=== PATIENT | male | born 1965 | race Caucasian/White ===

== ENCOUNTER 2023-11-08 15:33 | Observation (INO) ==
[2023-11-08 16:19] LABS: Hematocrit (blood only) 50.6 % (42.0-52.0); Hemoglobin 17.3 g/dl (14.0-18.0); Mean Corpuscular Hgb Conc 34.2 g/dL (32.0-36.0); Mean Corpuscular Volume 84.8 fL (80.0-100.0); Mean Platelet Volume 9.8 fL (9.4-12.4); Platelet Count 213 K/uL (130-400); RDW Coefficient of Variation 12.6 % (11.5-14.5); RDW Standard Deviation 38.4 fL (36.4-46.3); Red Blood Count 5.97 M/uL (4.70-6.10); White Blood Count 6.63 K/ul (4.8-10.8)
[2023-11-08 16:35] LABS: Albumin Globulin Ratio 1.6 (0.9-2); Albumin Level 4.5 gm/dl (3.4-5.0); BUN Creatinine Ratio 16.7 (10-20); Bilirubin,Total 0.7 mg/dl (0.2-1.0); Creatinine Clr Calc Pharmacy 89.9 ml/min; Est GFR (African American) 109.5 ml/min; Est GFR (Non-African American) 94.5 ml/min; Globulin 2.9 gm/dl (2.5-4.0); Total Protein 7.4 gm/dl (6.0-8.3)
[2023-11-08 16:41] LABS: Troponin I High Sensitivity 3.9 pg/ml (0-20)
[2023-11-08 16:45] LABS: Partial Thromboplastin Time 28 Seconds (21-31); Prothrombin Time 10.7 Seconds (9.0-12.0)
--- NOTE | 2023-11-08 19:31 | Emergency Department Note ---
Impression & Plan Lower gastrointestinal hemorrhage, BRBPR (bright red blood per rectum), Diverticulosis ED Provider Note NAME: YRN CORONA AGE: 58 SEX: M : 1965 ARRIVES VIA: Walk-In INFORMANT: Patient ED PROVIDER(S): Umesh Ghosh DO CHIEF COMPLAINT: Bright red blood per rectum HPI: Patient is a 58-year-old male who presents to the ER for blood per rectum which started earlier today. He has had about 6 episodes of this today. He has left lower quadrant pain. Associate with nausea. Denies any dysuria urgency or frequency. No headache or change in vision. No chest pain or shortness of breath. No other exacerbating or remitting factors. ADDITIONAL HISTORY OBTAINED: Per HPI Chronic Medical/Social Conditions Affecting Care: Per HPI PAST MEDICAL HISTORY:See Below PAST SURGICAL HISTORY:See Below FAMILY HISTORY:See Below SOCIAL HISTORY:See Below HOME MEDICATIONS:See Below ALLERGIES:See Below VITALS:See Below PHYSICAL EXAMINATION: GENERAL: Sitting up in bed, alert, well appearing, well nourished, no distress, non-toxic EYE EXAM: normal conjunctiva. OROPHARYNX: no exudate, no erythema, lips, buccal mucosa, and tongue normal and mucous membranes are moist NECK: supple, no nuchal rigidity, no adenopathy, non-tender LUNGS: Clear to auscultation. Normal chest wall mechanics HEART: no murmurs, S1 normal and S2 normal ABDOMEN: abdomen soft, non-tender, normo-active bowel sounds, no masses, no rebound or guarding. BACK: Back is symmetrical on inspection and there is no deformity, no midline tenderness, no CVA tenderness. SKIN: no rashes and no bruising UPPER EXTREMITIES: upper extremities are grossly normal. LOWER EXTREMITIES: No pitting edema. NEURO EXAM: Normal sensorium, cranial nerves II-XII grossly intact, normal speech, no gross weakness of arms, no gross weakness of legs. MEDICAL DECISION MAKING: Patient is a 58-year-old male who presents ER for above-stated complaint. IV was established blood work was obtained. Labs show no significant leukocytosis or anemia. INR unremarkable. BMP along with LFTs bilirubin and troponin was negative. Patient was typed and screened. Patient denies any blood thinners. CT abdomen pelvis showed no acute pathology with exception of diverticulosis. Hemoglobin went from 17 down to 14 while here. With this drop I did think it was prudent to watch him overnight. He was given IV fluids while here. Discussed case with the hospitalist Dr. Boyle for further evaluation management and treatment. Not consistent with an upper GI bleed with a normal BUN and no dark stools. Consults/Care Managements Discussions: Per MDM Triage Nursing notes reviewed. Limited review of prior medical records performed Vital Signs: reviewed and remarkable for HTN Differential diagnosis: Diverticulosis, AVM, coagulopathy, colitis, inflammatory bowel disease, malignancy, Doris-Canchola tear, esophagitis, peptic ulcer disease, variceal bleed, gastritis, epistaxis, fissure, hemorrhoids, as well as other pathologies. ER treatment provided: See below Diagnostics interpreted by me include EKG and cardiac monitoring as listed below: -Cardiac Monitoring: An order was placed for continuous cardiac monitoring. The monitor shows a rate of 70 with sinus rhythm. -ECG: none -Laboratory studies:Interpreted by me as stated above in MDM and shown below. Imaging studies: Xrays: As interpreted by me:none CTs show: CT abdomen pelvis per my preliminary interpretation showed no obvious bowel obstruction CT abdomen pelvis per radiologist scribed above Procedures:none Critical Care: None Past Med/Surg History Problem List (Updated 11/08/23 @ 21:24 by Umesh Ghosh DO) Diverticulosis (Acute) BRBPR (bright red blood per rectum) (Acute) Lower gastrointestinal hemorrhage (Acute) Social History Smoking Status: Never smoker Preferred Language: Thai Feels Safe at Home: Yes Allergies Allergies Allergy/AdvReac Type Severity Reaction Status Date / Time No Known Allergies Allergy Unverified 11/08/23 20:34 Home Meds Home Medications Medication Instructions Recorded Confirmed Fish Oil 2 cap PO QAM 11/08/23 11/08/23 Nexium 1 cap PO QAM 11/08/23 11/08/23 lisinopril 10 mg tablet 10 mg PO QAM 11/08/23 11/08/23 multivitamin 1 tab PO QAM 11/08/23 11/08/23 Results & Data (ED) Vital Signs Vital Signs - 24 hr 11/08/23 15:41 11/08/23 19:20 11/08/23 19:20 Temperature 36.7 C Temperature Source Temporal Artery Scan Pulse Rate - Lying Pulse Rate - Sitting Pulse Rate - Standing Pulse Rate 69 73 74 Respiratory Rate 18 24 Respiratory Effort / Characteristics Non-Labored Spontaneous Respiratory Depth Normal Blood Pressure - Lying Blood Pressure - Sitting Blood Pressure- Standing Blood Pressure 149/104 H Blood Pressure Mean 119 Blood Pressure Position Sitting Pulse Oximetry 98 Oxygen Delivery Method Room Air Sepsis Recent Fever Within 48 Hours No Sepsis New/Unexplained Change in Mental Status No Sepsis Action Taken by Nursing No Action Required 11/08/23 19:21 11/08/23 19:21 11/08/23 19:21 Temperature Temperature Source Pulse Rate - Lying 67 Pulse Rate - Sitting 66 Pulse Rate - Standing 68 Pulse Rate 79 Respiratory Rate 19 Respiratory Effort / Characteristics Respiratory Depth Blood Pressure - Lying 159/110 H Blood Pressure - Sitting 161/98 H Blood Pressure- Standing 158/110 H Blood Pressure 158/110 H Blood Pressure Mean 142 Blood Pressure Position Pulse Oximetry Oxygen Delivery Method Sepsis Recent Fever Within 48 Hours Sepsis New/Unexplained Change in Mental Status Sepsis Action Taken by Nursing 11/08/23 19:22 11/08/23 19:30 11/08/23 19:46 Temperature Temperature Source Pulse Rate - Lying Pulse Rate - Sitting Pulse Rate - Standing Pulse Rate 61 66 Respiratory Rate 18 11 L Respiratory Effort / Characteristics Respiratory Depth Blood Pressure - Lying Blood Pressure - Sitting Blood Pressure- Standing Blood Pressure Blood Pressure Mean Blood Pressure Position Pulse Oximetry Oxygen Delivery Method Room Air Sepsis Recent Fever Within 48 Hours Sepsis New/Unexplained Change in Mental Status Sepsis Action Taken by Nursing 11/08/23 19:47 11/08/23 19:47 11/08/23 19:48 Temperature Temperature Source Pulse Rate - Lying Pulse Rate - Sitting Pulse Rate - Standing Pulse Rate 62 Respiratory Rate 11 L Respiratory Effort / Characteristics Respiratory Depth Blood Pressure - Lying Blood Pressure - Sitting Blood Pressure- Standing Blood Pressure 159/106 H 148/112 H Blood Pressure Mean 121 123 Blood Pressure Position Pulse Oximetry Oxygen Delivery Method Sepsis Recent Fever Within 48 Hours Sepsis New/Unexplained Change in Mental Status Sepsis Action Taken by Nursing 11/08/23 19:48 11/08/23 19:50 11/08/23 20:00 Temperature Temperature Source Pulse Rate - Lying Pulse Rate - Sitting Pulse Rate - Standing Pulse Rate 64 60 57 L Respiratory Rate 19 20 Respiratory Effort / Characteristics Respiratory Depth Blood Pressure - Lying Blood Pressure - Sitting Blood Pressure- Standing Blood Pressure Blood Pressure Mean Blood Pressure Position Pulse Oximetry Oxygen Delivery Method Sepsis Recent Fever Within 48 Hours Sepsis New/Unexplained Change in Mental Status Sepsis Action Taken by Nursing 11/08/23 20:10 11/08/23 20:20 11/08/23 20:30 Temperature Temperature Source Pulse Rate - Lying Pulse Rate - Sitting Pulse Rate - Standing Pulse Rate 60 61 61 Respiratory Rate 17 15 22 Respiratory Effort / Characteristics Respiratory Depth Blood Pressure - Lying Blood Pressure - Sitting Blood Pressure- Standing Blood Pressure Blood Pressure Mean Blood Pressure Position Pulse Oximetry Oxygen Delivery Method Sepsis Recent Fever Within 48 Hours Sepsis New/Unexplained Change in Mental Status Sepsis Action Taken by Nursing 11/08/23 20:40 11/08/23 20:50 11/08/23 21:00 Temperature Temperature Source Pulse Rate - Lying Pulse Rate - Sitting Pulse Rate - Standing Pulse Rate 62 67 63 Respiratory Rate 17 17 Respiratory Effort / Characteristics Respiratory Depth Blood Pressure - Lying Blood Pressure - Sitting Blood Pressure- Standing Blood Pressure Blood Pressure Mean Blood Pressure Position Pulse Oximetry Oxygen Delivery Method Sepsis Recent Fever Within 48 Hours Sepsis New/Unexplained Change in Mental Status Sepsis Action Taken by Nursing 11/08/23 21:10 Temperature Temperature Source Pulse Rate - Lying Pulse Rate - Sitting Pulse Rate - Standing Pulse Rate 68 Respiratory Rate 16 Respiratory Effort / Characteristics Respiratory Depth Blood Pressure - Lying Blood Pressure - Sitting Blood Pressure- Standing Blood Pressure Blood Pressure Mean Blood Pressure Position Pulse Oximetry Oxygen Delivery Method Sepsis Recent Fever Within 48 Hours Sepsis New/Unexplained Change in Mental Status Sepsis Action Taken by Nursing Laboratory Data 11/08/23 19:50 11/08/23 16:02 Lab Results 11/08/23 11/08/23 Range/Units 16:02 19:50 WBC 6.63 (4.8-10.8) K/ul RBC 5.97 (4.70-6.10) M/uL Hgb 17.3 14.5 (14.0-18.0) g/dl Hct 50.6 (42.0-52.0) % MCV 84.8 (80.0-100.0) fL MCH 29.0 (25.0-34.0) pg MCHC 34.2 (32.0-36.0) g/dL RDW Std Deviation 38.4 (36.4-46.3) fL RDW Coeff of Bernice 12.6 (11.5-14.5) % Plt Count 213 (130-400) K/uL MPV 9.8 (9.4-12.4) fL PT 10.7 (9.0-12.0) Seconds INR 1.0 (0.9-1.1) APTT 28 (21-31) Seconds PTT Ratio 1.0 Sodium 139 (136-145) mmol/L Potassium 4.0 (3.5-5.1) mmol/L Chloride 106 (98-107) mmol/L Carbon Dioxide 27 (21-32) mmol/L Anion Gap 6 (3-11) BUN 15 (6-23) mg/dl Creatinine 0.90 (0.6-1.4) mg/dl Est Cr Clr Drug Dosing 89.9 ml/min Est GFR ( Amer) 109.5 ml/min Est GFR (Non-Af Amer) 94.5 ml/min BUN/Creatinine Ratio 16.7 (10-20) Glucose 88 (70-99(Fasting)) mg/dl Calcium 9.0 (8.6-10.3) mg/dl Total Bilirubin 0.7 (0.2-1.0) mg/dl AST 38 (13-39) U/L ALT 41 (7-52) U/L Alkaline Phosphatase 81 (34-104) U/L Troponin I High Sens 3.9 (0-20) pg/ml Total Protein 7.4 (6.0-8.3) gm/dl Albumin 4.5 (3.4-5.0) gm/dl Globulin 2.9 (2.5-4.0) gm/dl Albumin/Globulin Ratio 1.6 (0.9-2) Blood Type O Positive Antibody Screen NEGATIVE Administered Medications Discontinued Medications Sodium Chloride (Nss) 1,000 mls @ 999 mls/hr IV .Q1H1M ONE Stop: 11/08/23 20:31 Last Infusion: 11/08/23 21:02 Dose: Infused Documented By: Admin: 11/08/23 19:50 Dose: 999 mls/hr Documented By: LAST Ioversol (Optiray 320 100ml) 95 ml IV ONCE ONE Stop: 11/08/23 19:42 Last Admin: 11/08/23 19:41 Dose: 95 ml Documented By: PLW Imaging Data Radiologist's Impression: Abdomen/Pelvis CT 11/08/23 19:21 Exam(s): CT ABDOMEN + PELVIS With Contrast IV Amt: 95 ml opti 320 EXAM: CT Abdomen and Pelvis With Intravenous Contrast CLINICAL HISTORY: llq abd pain brbpr. TECHNIQUE: Axial computed tomography images of the abdomen and pelvis with intravenous contrast. CTDI is 25.31 mGy and DLP is 1191.64 mGy-cm. Automated exposure control was utilized for the study. A dose lowering technique was utilized adhering to the principles of ALARA. CONTRAST: Patient received 95 ml opti 320 of IV contrast COMPARISON: No relevant prior studies available. FINDINGS: Lung bases: Unremarkable. No mass. No consolidation. ABDOMEN: Liver: Unremarkable. No mass. Gallbladder and bile ducts: Unremarkable. No calcified stones. No ductal dilation. Pancreas: Unremarkable. No mass. No ductal dilation. Spleen: Unremarkable. No splenomegaly. Adrenals: Unremarkable. No mass. Kidneys and ureters: Unremarkable. No solid mass. No hydronephrosis. Stomach and bowel: The stomach is decompressed with only minimal gas and fluid noted internally. No evidence for bowel obstruction. No significant asymmetric bowel mucosal abnormality identified. Scattered diverticulosis without definite evidence for diverticulitis. PELVIS: Appendix: A normal caliber appendix is noted posterior to the cecum in the right lateral pelvis. Bladder: Unremarkable. No mass. Reproductive: Unremarkable as visualized. ABDOMEN and PELVIS: Intraperitoneal space: Unremarkable. No free air. No significant fluid collection. Bones/joints: Degenerative changes of the thoracolumbar spine. Chronic anterior wedging at T10 and T11 levels, resulting in accentuated kyphosis. No dislocation. Soft tissues: Unremarkable. Vasculature: Unremarkable. No abdominal aortic aneurysm. Lymph nodes: Unremarkable. No enlarged lymph nodes. IMPRESSION: No evidence for bowel obstruction. No significant asymmetric bowel mucosal abnormality identified. Scattered diverticulosis without definite evidence for diverticulitis. No free intraperitoneal fluid or pneumoperitoneum. Electronically signed by: Tyler Juares MD 11/08/23 20:15 PM Discharge Plan Visit Data Chief Complaint: GI Bleed Stated Complaint: BLEEDING FROM BOWELS, ABD PAIN ED Provider: Umesh Ghosh Discharge Problem: Lower gastrointestinal hemorrhage, BRBPR (bright red blood per rectum), Diverticulosis Forms Stand Alone Forms: My [facility] Prescriptions Prescriptions: No Action multivitamin [Multi-Vitamin] Tablet 1 tab PO QAM lisinopril 10 mg tablet 10 mg PO QAM Fish Oil 2 cap PO QAM Rx Instructions: unknown dose Nexium 1 cap PO QAM Rx Instructions: unknown dose Referrals Referrals: Chinmay Jang MD [Primary Care Provider] -
[2023-11-08] MEDS: OPTIRAY 320 100ml IV ONE (19:41)
[2023-11-08] MEDS: SODIUM CHLORIDE 0.9% 1,000 ML IV ONE (19:50)
--- NOTE | 2023-11-08 20:16 | CT Scan Report ---
Exam(s): CT ABDOMEN + PELVIS With Contrast IV Amt: 95 ml opti 320 EXAM: CT Abdomen and Pelvis With Intravenous Contrast CLINICAL HISTORY: llq abd pain brbpr. TECHNIQUE: Axial computed tomography images of the abdomen and pelvis with intravenous contrast. CTDI is 25.31 mGy and DLP is 1191.64 mGy-cm. Automated exposure control was utilized for the study. A dose lowering technique was utilized adhering to the principles of ALARA. CONTRAST: Patient received 95 ml opti 320 of IV contrast COMPARISON: No relevant prior studies available. FINDINGS: Lung bases: Unremarkable. No mass. No consolidation. ABDOMEN: Liver: Unremarkable. No mass. Gallbladder and bile ducts: Unremarkable. No calcified stones. No ductal dilation. Pancreas: Unremarkable. No mass. No ductal dilation. Spleen: Unremarkable. No splenomegaly. Adrenals: Unremarkable. No mass. Kidneys and ureters: Unremarkable. No solid mass. No hydronephrosis. Stomach and bowel: The stomach is decompressed with only minimal gas and fluid noted internally. No evidence for bowel obstruction. No significant asymmetric bowel mucosal abnormality identified. Scattered diverticulosis without definite evidence for diverticulitis. PELVIS: Appendix: A normal caliber appendix is noted posterior to the cecum in the right lateral pelvis. Bladder: Unremarkable. No mass. Reproductive: Unremarkable as visualized. ABDOMEN and PELVIS: Intraperitoneal space: Unremarkable. No free air. No significant fluid collection. Bones/joints: Degenerative changes of the thoracolumbar spine. Chronic anterior wedging at T10 and T11 levels, resulting in accentuated kyphosis. No dislocation. Soft tissues: Unremarkable. Vasculature: Unremarkable. No abdominal aortic aneurysm. Lymph nodes: Unremarkable. No enlarged lymph nodes. IMPRESSION: No evidence for bowel obstruction. No significant asymmetric bowel mucosal abnormality identified. Scattered diverticulosis without definite evidence for diverticulitis. No free intraperitoneal fluid or pneumoperitoneum. Electronically signed by: Tyler Juares MD 11/08/23 20:15 PM
[2023-11-08] MEDS: ACETAMINOPHEN 1,000 MG/100 ML VIAL IV STA (22:00)
[2023-11-08] MEDS ORDERED: NITROGLYCERIN SL 0.4 MG/TAB TAB SL PRN (22:06)
--- NOTE | 2023-11-08 23:59 | History & Physical Report ---
Date of Service November 08, 2023 Assessment & Plan (1) BRBPR (bright red blood per rectum): Plan: 58-year-old male with past medical significant for hypertension, GERD , degenerative disc disease comes with several episodes of blood per rectum today. Has some abdominal discomfort. Micturating okay. Denies chest pain or shortness of breath. Currently no nausea. Having lot of headaches. having spasms in the neck, thinks from the anxiety. Vision is okay. No runny nose or sore throat. No cough. Afebrile. Appetite is okay. Hemodynamics are okay. Blood per rectum several episodes initial hemoglobin 17.3 and repeat is 14.5 we will follow serial H&H blood consent obtained CT scan showing diverticulosis IV Protonix n.p.o. IV fluids telemetry GI consult close monitor hypertension holding lisinopril will monitor DVT prophylaxis SCDs disposition telemetry full code. History of Present Illness Chief Complaint: rectal bleed Primary Care Provider: Chinmay Jnag MD 58-year-old male with past medical significant for hypertension, GERD , degenerative disc disease comes with several episodes of blood per rectum today. Has some abdominal discomfort. Micturating okay. Denies chest pain or shortness of breath. Currently no nausea. Having lot of headaches. having spasms in the neck, thinks from the anxiety. Vision is okay. No runny nose or sore throat. No cough. Afebrile. Appetite is okay. Hemodynamics are okay. Past medical's. As mentioned above. past surgical history. None family history. father had lung cancer and mother has diabetes. Social history no smoking. Alcohol social drinking. No drug use. Allergies Allergy/AdvReac Type Severity Reaction Status Date / Time No Known Allergies Allergy Unverified 11/08/23 20:34 Home Medications Medication Instructions Recorded Confirmed Type Fish Oil 2 cap PO QAM 11/08/23 11/08/23 History Nexium 1 cap PO QAM 11/08/23 11/08/23 History lisinopril 10 mg tablet 10 mg PO QAM 11/08/23 11/08/23 History multivitamin 1 tab PO QAM 11/08/23 11/08/23 History Past Med/Surg History Problem List (Updated 11/08/23 @ 21:24 by Umesh Ghosh DO) Diverticulosis (Acute) BRBPR (bright red blood per rectum) (Acute) Lower gastrointestinal hemorrhage (Acute) Social History Smoking Status: Never smoker Second Hand Exposure: No; Do You Dip or Chew Tobacco: No; Tobacco Cessation Education Requested by Patient: No Hx Alcohol Use: Yes (Socially) Hx Substance Use: No Preferred Language: Estonian Communication Ability: Effective Library Technology Instructor Required: No Beliefs That Will Affect Care: None Current Living Situation: Spouse and Family Current Living Situation Comment: Lives at home with & two adult children - single story residence Feels Safe at Home: Yes Safety Concerns: Feels Safe At This Time Assistive Devices: None Review of Systems Review of Systems: All systems reviewed & are unremarkable except as noted in HPI & below Physical Exam Physical Exam: General- Not in distress Head- atraumatic Eyes- PERRL. ENT- oropharynx clear Neck- supple, no JVD. Lungs- clear to auscultation no wheezing or crackles. Heart- regular rhythm; no murmur, no gallop. Abdomen- normal bowel sounds, soft, mild diffuse discomfort no distension. Extremities- no pretibial edema, no erythema seen. Neuro- alert, oriented PERRL, no facial palsy; no dysarthria; moves extremities. Results & Data Results & Data Vital Signs (Past 12 Hours) Vital Signs Temp Pulse Resp BP Pulse Ox O2 Del Method 11/08/23 21:10 68 16 11/08/23 21:00 63 17 11/08/23 20:50 67 17 11/08/23 20:40 62 11/08/23 20:30 61 22 11/08/23 20:20 61 15 11/08/23 20:10 60 17 11/08/23 20:00 57 L 20 11/08/23 19:50 60 19 11/08/23 19:48 64 11/08/23 19:48 148/112 H 11/08/23 19:47 159/106 H 11/08/23 19:47 62 11 L 11/08/23 19:46 66 11 L 11/08/23 19:30 61 18 11/08/23 19:22 Room Air 11/08/23 19:21 79 19 11/08/23 19:21 158/110 H 11/08/23 19:20 74 11/08/23 19:20 73 24 11/08/23 15:41 36.7 C 69 18 149/104 H 98 Room Air Diagnostic Findings Laboratory Results WBC 6.63 K/ul (4.8-10.8) 11/08/23 16:02 RBC 5.97 M/uL (4.70-6.10) 11/08/23 16:02 Hgb 14.5 g/dl (14.0-18.0) 11/08/23 19:50 Hct 50.6 % (42.0-52.0) 11/08/23 16:02 MCV 84.8 fL (80.0-100.0) 11/08/23 16:02 MCH 29.0 pg (25.0-34.0) 11/08/23 16:02 MCHC 34.2 g/dL (32.0-36.0) 11/08/23 16:02 RDW Std Deviation 38.4 fL (36.4-46.3) 11/08/23 16:02 RDW Coeff of Bernice 12.6 % (11.5-14.5) 11/08/23 16:02 Plt Count 213 K/uL (130-400) 11/08/23 16:02 MPV 9.8 fL (9.4-12.4) 11/08/23 16:02 PT 10.7 Seconds (9.0-12.0) 11/08/23 16:02 INR 1.0 (0.9-1.1) 11/08/23 16:02 APTT 28 Seconds (21-31) 11/08/23 16:02 PTT Ratio 1.0 11/08/23 16:02 Sodium 139 mmol/L (136-145) 11/08/23 16:02 Potassium 4.0 mmol/L (3.5-5.1) 11/08/23 16:02 Chloride 106 mmol/L (98-107) 11/08/23 16:02 Carbon Dioxide 27 mmol/L (21-32) 11/08/23 16:02 Anion Gap 6 (3-11) 11/08/23 16:02 BUN 15 mg/dl (6-23) 11/08/23 16:02 Creatinine 0.90 mg/dl (0.6-1.4) 11/08/23 16:02 Est Cr Clr Drug Dosing 89.9 ml/min 11/08/23 16:02 Est GFR ( Amer) 109.5 ml/min 11/08/23 16:02 Est GFR (Non-Af Amer) 94.5 ml/min 11/08/23 16:02 BUN/Creatinine Ratio 16.7 (10-20) 11/08/23 16:02 Glucose 88 mg/dl (70-99(Fasting)) 11/08/23 16:02 Calcium 9.0 mg/dl (8.6-10.3) 11/08/23 16:02 Total Bilirubin 0.7 mg/dl (0.2-1.0) 11/08/23 16:02 AST 38 U/L (13-39) 11/08/23 16:02 ALT 41 U/L (7-52) 11/08/23 16:02 Alkaline Phosphatase 81 U/L (34-104) 11/08/23 16:02 Troponin I High Sens 3.9 pg/ml (0-20) 11/08/23 16:02 Total Protein 7.4 gm/dl (6.0-8.3) 11/08/23 16:02 Albumin 4.5 gm/dl (3.4-5.0) 11/08/23 16:02 Globulin 2.9 gm/dl (2.5-4.0) 11/08/23 16:02 Albumin/Globulin Ratio 1.6 (0.9-2) 11/08/23 16:02 Blood Type O Positive 11/08/23 16:02 Antibody Screen NEGATIVE 11/08/23 16:02 Impressions Abdomen/Pelvis CT 11/08/23 19:21 Exam(s): CT ABDOMEN + PELVIS With Contrast IV Amt: 95 ml opti 320 EXAM: CT Abdomen and Pelvis With Intravenous Contrast CLINICAL HISTORY: llq abd pain brbpr. TECHNIQUE: Axial computed tomography images of the abdomen and pelvis with intravenous contrast. CTDI is 25.31 mGy and DLP is 1191.64 mGy-cm. Automated exposure control was utilized for the study. A dose lowering technique was utilized adhering to the principles of ALARA. CONTRAST: Patient received 95 ml opti 320 of IV contrast COMPARISON: No relevant prior studies available. FINDINGS: Lung bases: Unremarkable. No mass. No consolidation. ABDOMEN: Liver: Unremarkable. No mass. Gallbladder and bile ducts: Unremarkable. No calcified stones. No ductal dilation. Pancreas: Unremarkable. No mass. No ductal dilation. Spleen: Unremarkable. No splenomegaly. Adrenals: Unremarkable. No mass. Kidneys and ureters: Unremarkable. No solid mass. No hydronephrosis. Stomach and bowel: The stomach is decompressed with only minimal gas and fluid noted internally. No evidence for bowel obstruction. No significant asymmetric bowel mucosal abnormality identified. Scattered diverticulosis without definite evidence for diverticulitis. PELVIS: Appendix: A normal caliber appendix is noted posterior to the cecum in the right lateral pelvis. Bladder: Unremarkable. No mass. Reproductive: Unremarkable as visualized. ABDOMEN and PELVIS: Intraperitoneal space: Unremarkable. No free air. No significant fluid collection. Bones/joints: Degenerative changes of the thoracolumbar spine. Chronic anterior wedging at T10 and T11 levels, resulting in accentuated kyphosis. No dislocation. Soft tissues: Unremarkable. Vasculature: Unremarkable. No abdominal aortic aneurysm. Lymph nodes: Unremarkable. No enlarged lymph nodes. IMPRESSION: No evidence for bowel obstruction. No significant asymmetric bowel mucosal abnormality identified. Scattered diverticulosis without definite evidence for diverticulitis. No free intraperitoneal fluid or pneumoperitoneum. Electronically signed by: Tyler Juares MD 11/08/23 20:15 PM Code Status & VTE Plan VTE Prophylaxis Plan VTE Prophylaxis will be ordered: Yes
[2023-11-09] MEDS: SODIUM CHLORIDE 0.9% 1,000 ML IV SCH (01:10)
[2023-11-09] MEDS: PANTOprazole 40 MG in SYRINGE 0 ML IV ONE (03:01)
[2023-11-09 06:23] LABS: BUN Creatinine Ratio 13.2 (10-20); Creatinine Clr Calc Pharmacy 88.9 ml/min; Est GFR (Non-African American) 93.2 ml/min; Magnesium 1.9 mg/dl (1.7-2.4); Potassium 4.3 mmol/L (3.5-5.1)
[2023-11-09 06:36] LABS: Basophils # (auto) 0.05 K/uL (0.00-0.20); Basophils % (auto) 0.9 %; Eosinophils # (auto) 0.12 K/uL (0.00-0.50); Eosinophils % (auto) 2.1 %; Hematocrit (blood only) 40.6 % (42.0-52.0); Immature Granulocytes # (auto) 0.03 K/uL (0.01-0.20); Immature Granulocytes % (auto) 0.5 %; Lymphocytes # (auto) 1.85 K/uL (1.20-3.40); Lymphocytes % (auto) 31.8 %; Mean Corpuscular Hemoglobin 29.2 pg (25.0-34.0); Mean Corpuscular Hgb Conc 34.5 g/dL (32.0-36.0); Mean Corpuscular Volume 84.6 fL (80.0-100.0); Mean Platelet Volume 10.1 fL (9.4-12.4); Monocytes # (auto) 0.48 K/uL (0.11-0.59); Monocytes % (auto) 8.2 %; Neutrophils # (auto) 3.29 K/uL (1.40-6.50); Neutrophils % (auto) 56.5 %; Platelet Count 182 K/uL (130-400); RDW Coefficient of Variation 12.5 % (11.5-14.5); RDW Standard Deviation 38.3 fL (36.4-46.3); White Blood Count 5.82 K/ul (4.8-10.8)
[2023-11-09] MEDS: PANTOprazole 40 MG in SYRINGE 0 ML IV SCH (08:06)
[2023-11-09 10:34] LABS: Hematocrit (blood only) 41.5 % (42.0-52.0); Hemoglobin 14.6 g/dl (14.0-18.0)
--- NOTE | 2023-11-09 11:52 | Gastrointestinal Consultation ---
Date of Consultation November 09, 2023 Assessment & Plan (1) BRBPR (bright red blood per rectum): Discussed differential diagnosis include diverticular bleeding -Clear liquids today -NPO after midnight with exception of bowel preparation -Colonoscopy on 11/10/23 -Continue to monitor H/H Supervising Physician Co-Signing Physician Notes Agree with TANNER Michael as above Interviewed and examined patient and agree with above Abd: Soft, NT, ND, +BS Continue current therapy and supportive care Clear liquid diet, bowel prep tonight, Colonoscopy tomorrow History of Present Illness Reason for Consultation: BRBPR Attending Physician: Isacc Alvarenga MD History of Present Illness Patient is a 58 yo male who presents for evaluation of BRBPR. Patient notes that symptoms began yesterday. He notes that he is passing significant amounts of bright red blood each time he feels he must have a bowel movement. He denies abdominal pain. He denies other GI symptoms. He notes a distant history within the past 10 years for screening purposes. He notes this was done at [facility]. He denies anything alarming being found on that procedure. He presented to our ED and was noted to have a stable H/H, but hemoglobin did drop from 17.3 to 14.6 and patient has continued to have episodes of rectal bleeding. He notes the last episode prior to my arrival appeared to be somewhat darker blood. He denies unintentional weight loss. CT A/P showed diverticulosis. He is apprehensive about returning home without a diagnosis. Allergies Allergy/AdvReac Type Severity Reaction Status Date / Time No Known Allergies Allergy Unverified 11/08/23 20:34 Home Medications Medication Instructions Recorded Confirmed Type Fish Oil 2 cap PO QAM 11/08/23 11/08/23 History Nexium 1 cap PO QAM 11/08/23 11/08/23 History lisinopril 10 mg tablet 10 mg PO QAM 11/08/23 11/08/23 History multivitamin 1 tab PO QAM 11/08/23 11/08/23 History Patient History Medical History (Updated 11/09/23 @ 14:47 by Taylor Tran DO) Hx of lower gastrointestinal bleeding DJD (degenerative joint disease) GERD (gastroesophageal reflux disease) HTN (hypertension) Diverticulosis Social History Smoking Status: Never smoker Second Hand Exposure: No; Do You Dip or Chew Tobacco: No; Tobacco Cessation Education Requested by Patient: No Hx Alcohol Use: Yes (Socially) Hx Substance Use: No Preferred Language: Polish Communication Ability: Effective Belt Changer Required: No Beliefs That Will Affect Care: None Current Living Situation: Spouse and Family Current Living Situation Comment: Lives at home with & two adult children - single story residence Feels Safe at Home: Yes Safety Concerns: Feels Safe At This Time Assistive Devices: None Review of Systems Constitutional: no fever and no chills Respiratory: no cough and no dyspnea Cardiovascular: no chest pain Gastrointestinal: + blood in stools Integumentary: no problem reported Psychiatric: no problem reported Physical Exam Constitutional: well developed Respiratory: normal respiratory effort Cardiovascular: Rate/Rhythm: regular rate Gastrointestinal (Abdomen): normal bowel sounds, soft, nontender, no hepatosplenomegaly Psychiatric: Orientation: alert and oriented x 3 Results & Data Vital Signs (Past 12 Hours) Vital Signs Pulse Pulse Resp BP BP Pulse Ox Pulse Ox 11/09/23 08:05 60 11/09/23 04:00 69 12 106/80 95 11/09/23 03:00 62 18 132/93 95 11/09/23 02:15 65 17 114/85 95 11/09/23 02:10 95 11/09/23 02:00 65 17 114/85 97 11/09/23 01:52 65 16 125/93 95 11/09/23 01:20 64 13 O2 Del Method O2 Del Method 11/09/23 08:05 11/09/23 04:00 Room Air 11/09/23 03:00 Room Air 11/09/23 02:15 Room Air 11/09/23 02:10 Room Air 11/09/23 02:00 Room Air 11/09/23 01:52 Room Air 11/09/23 01:20 PG Care Time/CCT Total # of Minutes Spent Total Time Spent with Patient: Total time spent is greater than 50% in coordination of care (as documented) at patient's floor/unit and/or counseling patient: Coding Level of Care Code 89500 IN/OBS CONSULT LVL 4,60M Diagnoses BRBPR (bright red blood per rectum) K62.5
[2023-11-09] MEDS ORDERED: ACETAMINOPHEN 1,000 MG/100 ML VIAL IV PRN (13:02)
--- NOTE | 2023-11-09 14:49 | Anesthesiology Consultation ---
Date of Service November 09, 2023 Assessment & Plan Chart Review Chart Review: Acceptable Risk for Surgery Consults Requested none ASA ASA2 Proposed Anesthesia Anesthesia Type: MAC Risk / Benefits Reviewed With: PT / POA / Parent / Guardian, Accepts Plan and Informed Consent Obtained History Surgery Operation Date: 11/10/23 16:30 Proposed Procedures p Colonoscopy Dr. Mikie Deluna DO Height/Weight Height: 5 ft 10 in Weight: 70.2 kg Allergies Allergy/AdvReac Type Severity Reaction Status Date / Time No Known Allergies Allergy Verified 11/10/23 10:12 Medications Home Medications Medication Instructions Recorded Confirmed Last Taken Fish Oil 2 cap PO QAM 11/08/23 11/08/23 11/08/23 Nexium 1 cap PO QAM 11/08/23 11/08/23 11/08/23 lisinopril 10 mg tablet 10 mg PO QAM 11/08/23 11/08/23 11/08/23 multivitamin 1 tab PO QA 11/08/23 11/08/23 11/08/23 Active Medications Generic Name Dose Route Start Last Admin Trade Name Freq PRN Reason Stop Dose Admin Sodium Chloride 1,000 mls @ 80 mls/hr 11/08/23 22:06 11/10/23 07:39 Nss IV 12/08/23 22:05 125 mls/hr .[id number] AMIE Administration Pantoprazole Sodium 40 mg/ 10 mls @ 5 mls/min 11/09/23 09:00 11/10/23 07:40 Syringe IV 12/09/23 08:59 5 mls/min BID AMIE Administration Polyethylene Glycol/Electrolytes 8 dose 11/09/23 18:00 11/10/23 03:34 Lavage Solution 4000ml PO 12/09/23 17:59 8 dose TODAY@0300,1800 AMIE Administration NPO Date Last Intake of Fluids: 11/10/23 Time Last Intake of Fluids: 08:00 Date Last Intake of Solids: 11/08/23 Time Last Intake of Solids: 12:20 Past Medical History Medical History (Updated 11/10/23 @ 10:32 by Taylor Tran DO) Hx of lower gastrointestinal bleeding DJD (degenerative joint disease) GERD (gastroesophageal reflux disease) HTN (hypertension) Exercise / Class Metabolic Activity II 4-5 Yardwork/Stairs/Walk up hill Past Surgical History Surgical History (Updated 11/10/23 @ 10:35 by Taylor Tran DO) Hx of vasectomy Hx of esophagogastroduodenoscopy Hx of colonoscopy H/O arthroscopic knee surgery Cataract extraction status of eye Past Anesthesia History No Hx of Anesthesia Complications and No Family Hx of Anesthesia Complications History of PONV No Hx of PONV and No Hx of Motion Sickness Social History Smoking Status: Never smoker Do You Dip or Chew Tobacco: No Hx Alcohol Use: Yes (Socially) alcohol intake frequency: a few times a month Hx Substance Use: No substance use type: does not use Physical Exam Vital Signs Last Vital Signs Temp 36.6 C 11/10/23 10:14 Pulse 73 11/10/23 10:14 Resp 16 11/10/23 10:14 BP 144/79 H 11/10/23 10:14 Pulse Ox 97 11/10/23 10:14 O2 Del Method Room Air 11/10/23 10:14 ENMT Mouth: no TMJ abnormality Thyromental Distance: > or= 3.5 Finger Breadths Mallampati Class: II Neck normal visual inspection, trachea midline and + facial hair; neck extension not limited Respiratory normal respiratory effort Auscultation: lungs clear to auscultation bilaterally Cardiovascular Rate/Rhythm: regular rate and regular rhythm Heart Sounds: no murmur Musculoskeletal Spine: normal cervical ROM Extremities: full ROM of extremities Neurologic moves all extremities Psychiatric Orientation: alert and oriented x 3 Testing Laboratory Results 11/10/23 06:14 11/10/23 06:14 PT 10.7 Seconds (9.0-12.0) 11/08/23 16:02 INR 1.0 (0.9-1.1) 11/08/23 16:02 APTT 28 Seconds (21-31) 11/08/23 16:02 Blood Type O Positive 11/08/23 16:02 Antibody Screen NEGATIVE 11/08/23 16:02
--- NOTE | 2023-11-09 16:20 | Hospitalist Progress Note ---
Date of Service November 09, 2023 Assessment & Plan (1) BRBPR (bright red blood per rectum): Plan: 58-year-old male with past medical significant for hypertension, GERD , degenerative disc disease comes with several episodes of blood per rectum today. Has some abdominal discomfort. Micturating okay. Denies chest pain or shortness of breath. Currently no nausea. Having lot of headaches. having spasms in the neck, thinks from the anxiety. Vision is okay. No runny nose or sore throat. No cough. Afebrile. Appetite is okay. Hemodynamics are okay. Bright red blood per rectum Likely diverticular bleed Admits to use naproxen for back pain recently --CT ABD:No evidence for bowel obstruction. No significant asymmetric bowel mucosal abnormality identified. Scattered diverticulosis without definite evidence for diverticulitis. No free intraperitoneal fluid or pneumoperitoneum. Monitor H&H and transfuse as needed Avoid NSAIDs Appreciate GI input Plan for colonoscopy tomorrow Clear liquid out for now NPO after midnight Also on IV Protonix Continue IV fluids Bowel prep today Hypertension Hold lisinopril for now monitor DVT prophylaxis SCDs Code Status Full code Admission and Anticipated Discharge Date Admission Date: November 08, 2023 Subjective Patient is seen and examined at bedside Reports last rectal bleeding this morning Also states having minimal abdominal discomfort and headache today No other complaints Review of Systems Review of Systems: All systems reviewed & are unremarkable except as noted in Subjective Physical Exam Physical Exam: Physical Exam: Vitals signs as noted above General Appearance:Moderately built and nourished, no apparent distress Head: normocephalic, Atraumatic Eyes: normal inspection, EOMI Neck: supple, Trachea midline Respiratory/Chest: Normal breath sounds, CTA, No accessory muscle use Cardiovascular: S1, S2, No murmur Abdomen/GI:Soft, Non tender, Bowel sounds present Extremities/Musculoskeletal:normal inspection, no edema Neurologic/Psych:AAOX3, grossly no focal neurological deficits Skin: normal color, warm Results & Data Results & Data Vital Signs (Past 12 Hours) Vital Signs Pulse Pulse Resp BP Pulse Ox O2 Del Method 11/09/23 15:30 63 18 134/83 96 Room Air 11/09/23 12:05 62 16 127/77 97 Room Air 11/09/23 09:30 71 16 139/95 97 Room Air 11/09/23 08:05 60 Laboratory Results Short CBC 11/08/23 11/08/23 11/09/23 Range/Units 16:02 19:50 05:21 WBC 6.63 5.82 (4.8-10.8) K/ul Hgb 17.3 14.5 14.0 (14.0-18.0) g/dl Hct 50.6 40.6 L (42.0-52.0) % Plt Count 213 182 (130-400) K/uL 11/09/23 Range/Units 10:22 WBC (4.8-10.8) K/ul Hgb 14.6 (14.0-18.0) g/dl Hct 41.5 L (42.0-52.0) % Plt Count (130-400) K/uL BMP 11/08/23 11/09/23 16:02 05:21 Sodium 139 139 Potassium 4.0 4.3 Chloride 106 109 H Carbon Dioxide 27 26 BUN 15 12 Creatinine 0.90 0.91 Glucose 88 86 Calcium 9.0 8.0 L Liver Function 11/08/23 Range/Units 16:02 Total Bilirubin 0.7 (0.2-1.0) mg/dl AST 38 (13-39) U/L ALT 41 (7-52) U/L Alkaline Phosphatase 81 (34-104) U/L Albumin 4.5 (3.4-5.0) gm/dl
[2023-11-09] MEDS: LAVAGE SOLUTION 4000ML PO SCH (18:30)
[2023-11-09 18:46] LABS: Hematocrit (blood only) 41.3 % (42.0-52.0); Hemoglobin 14.4 g/dl (14.0-18.0)
[2023-11-10 06:52] LABS: Hematocrit (blood only) 43.6 % (42.0-52.0); Hemoglobin 15.1 g/dl (14.0-18.0); Mean Corpuscular Hemoglobin 29.4 pg (25.0-34.0); Mean Corpuscular Hgb Conc 34.6 g/dL (32.0-36.0); Mean Corpuscular Volume 84.8 fL (80.0-100.0); Mean Platelet Volume 9.9 fL (9.4-12.4); Platelet Count 207 K/uL (130-400); RDW Coefficient of Variation 12.5 % (11.5-14.5); RDW Standard Deviation 38.5 fL (36.4-46.3); Red Blood Count 5.14 M/uL (4.70-6.10); White Blood Count 5.49 K/ul (4.8-10.8)
[2023-11-10 07:06] LABS: BUN Creatinine Ratio 9.6 (10-20); Calcium 8.6 mg/dl (8.6-10.3); Creatinine Clr Calc Pharmacy 101.4 ml/min; Est GFR (African American) 113.2 ml/min; Est GFR (Non-African American) 97.7 ml/min; Potassium 3.6 mmol/L (3.5-5.1)
--- NOTE | 2023-11-10 07:49 | Electrocardiogram Report ---
Test Reason : Blood Pressure : / mmHG Vent. Rate : 070 BPM Atrial Rate : 070 BPM P-R Int : 202 ms QRS Dur : 074 ms QT Int : 400 ms P-R-T Axes : 042 036 052 degrees QTc Int : 432 ms Normal sinus rhythm Normal ECG No previous ECGs available Confirmed by Keith Ngo ([id number]) on 11/10/2023 7:49:22 AM Referred By: REFERRED SELF Confirmed By:Keith Ngo
--- NOTE | 2023-11-10 10:22 | History & Physical Bridge Note ---
Date of Service November 10, 2023 History & Physical Bridge Note I have examined the patient, reviewed the History & Physical and in the interval since the performance of the History & Physical I have noted the following changes of clinical significance: no changes noted. Patient completed his bowel preparation. He notes some old blood passed during the first portion of his prep. He has been NPO since prior to midnight. Proceed with colonoscopy today. Supervising Physician Co-Signing Physician Notes Agree with TANNER Michael as above Abd: Soft, NT, ND, +BS Continue current therapy and supportive care Proceed with colonoscopy now.
--- NOTE | 2023-11-10 11:33 | GI REPORT ---
Patient Name: Frank Mejia Procedure Date: 11/10/2023 10:34 AM Date of : 1965 Admit Type: Inpatient Age: 58 Gender: Male Attending MD: Joey Deluna DO, Procedure: Colonoscopy Providers: Joey Deluna DO Referring MD: Isacc Alvarenga MD Indications: Hematochezia Medicines: Monitored Anesthesia Care Complications: No immediate complications. Estimated Blood Loss: Estimated blood loss: none. Procedure: Pre-Anesthesia Assessment: - Prior to the procedure, a History and Physical was performed, and patient medications and allergies were reviewed. The patient's tolerance of previous anesthesia was also reviewed. The risks and benefits of the procedure and the sedation options and risks were discussed with the patient. All questions were answered, and informed consent was obtained. Prior Anticoagulants: The patient has taken no anticoagulant or antiplatelet agents. ASA Grade Assessment: II - A patient with mild systemic disease. After reviewing the risks and benefits, the patient was deemed in satisfactory condition to undergo the procedure. After I obtained informed consent, the scope was passed under direct vision. Throughout the procedure, the patient's blood pressure, pulse, and oxygen saturations were monitored continuously. The Colonoscope was introduced through the anus and advanced to the terminal ileum. The colonoscopy was performed without difficulty. The patient tolerated the procedure well. The quality of the bowel preparation was good. The terminal ileum, ileocecal valve, appendiceal orifice, and rectum were photographed. Findings: The perianal and digital rectal examinations were normal. Multiple small-mouthed diverticula were found in the sigmoid colon. Non-bleeding internal hemorrhoids were found during retroflexion. The hemorrhoids were small. Impression: - Diverticulosis in the sigmoid colon. - Non-bleeding internal hemorrhoids. - No specimens collected. Recommendation: - Return patient to hospital car for ongoing care. - Advance diet as tolerated. - Continue present medications. - Repeat colonoscopy in 10 years for surveillance. Joey Deluna DO 11/10/2023 11:33:21 AM This report has been signed electronically. Note Initiated On: 11/10/2023 10:34 AM Number of Addenda: 0 I attest to the content of the Intraoperative Record and orders documented therein, exceptions below {[id number]}
[2023-11-10] MEDS: fentaNYL citrate PF 100 MCG/2 ML VIAL ONE (11:48)
[2023-11-10] MEDS: SODIUM CHLORIDE 0.9% 500 ML IV SCH (11:48)
[2023-11-10] MEDS: PROPOFOL IV EMULSION 10 MG/ML 20 ML VIAL IV ONE (11:48)
[2023-11-10] MEDS: MIDAZOLAM HCL 1 MG/ML 2ML VIAL ONE (11:48)
--- NOTE | 2023-11-10 11:49 | Anesthesiology Progress Note ---
Date of Service November 10, 2023 Anesthesia Post Procedure Vital Signs Vital Signs: Temp Pulse Pulse Pulse Resp BP BP 11/10/23 11:40 67 16 125/97 11/10/23 11:25 65 16 118/76 11/10/23 11:10 75 16 122/73 11/10/23 10:14 36.6 C 73 16 144/79 H 11/10/23 08:23 36.5 C 67 20 134/87 11/10/23 07:05 64 11/10/23 04:58 36.6 C 65 20 128/90 11/10/23 00:00 36.7 C 67 20 137/87 11/09/23 20:29 69 11/09/23 19:47 134/84 11/09/23 19:04 36.6 C 74 16 143/90 H 11/09/23 17:45 74 19 138/84 11/09/23 15:30 63 18 134/83 11/09/23 12:05 62 16 127/77 Pulse Ox O2 Del Method 11/10/23 11:40 99 Room Air 11/10/23 11:25 96 Room Air 11/10/23 11:10 96 Room Air 11/10/23 10:14 97 Room Air 11/10/23 08:23 95 Room Air 11/10/23 07:05 11/10/23 04:58 96 Room Air 11/10/23 00:00 97 Room Air 11/09/23 20:29 11/09/23 19:47 11/09/23 19:04 97 Room Air 11/09/23 17:45 98 Room Air 11/09/23 15:30 96 Room Air 11/09/23 12:05 97 Room Air Pain Intensity Abdomen: Pain Intensity: 5 Transfer of Care Handoff Completed per policy Notes Mental Status: alert / awake / arousable Patient Amnestic to Procedure: Yes Nausea / Vomiting: adequately controlled Pain: adequately controlled Airway Patency, RR, SpO2: stable & adequate BP & HR: stable & adequate Hydration State: stable & adequate Anesthetic Complications: no major complications apparent and Pt Satisfied with anesthetic care
--- NOTE | 2023-11-10 13:32 | Hospitalist Progress Note ---
Date of Service November 10, 2023 Assessment & Plan (1) BRBPR (bright red blood per rectum): Plan: 58-year-old male with past medical significant for hypertension, GERD , degenerative disc disease comes with several episodes of blood per rectum today. Has some abdominal discomfort. Micturating okay. Denies chest pain or shortness of breath. Currently no nausea. Having lot of headaches. having spasms in the neck, thinks from the anxiety. Vision is okay. No runny nose or sore throat. No cough. Afebrile. Appetite is okay. Hemodynamics are okay. Bright red blood per rectum Likely diverticular bleed Admits to use naproxen for back pain recently --CT ABD:No evidence for bowel obstruction. No significant asymmetric bowel mucosal abnormality identified. Scattered diverticulosis without definite evidence for diverticulitis. No free intraperitoneal fluid or pneumoperitoneum. --S/P Colonoscopy: Diverticulosis in the sigmoid colon. Non-bleeding internal hemorrhoids. No specimens collected. Monitor H&H and transfuse as needed Avoid NSAIDs Appreciate GI input Advance diet as tolerated Discontinue IV Protonix, IV fluids Hb stable Hypertension Resume lisinopril on discharge monitor DVT prophylaxis SCDs Code Status Full code Disposition Home Admission and Anticipated Discharge Date Admission Date: November 08, 2023 Subjective Patient is seen and examined at bedside Abdominal discomfort, headache resolved Had colonoscopy earlier today No recurrence of bleeding issues Discussed with GI today Plan to be discharged home today Review of Systems Review of Systems: All systems reviewed & are unremarkable except as noted in Subjective Physical Exam Physical Exam: Physical Exam: Vitals signs as noted above General Appearance:Moderately built and nourished, no apparent distress Head: normocephalic, Atraumatic Eyes: normal inspection, EOMI Neck: supple, Trachea midline Respiratory/Chest: Normal breath sounds, CTA, No accessory muscle use Cardiovascular: S1, S2, No murmur Abdomen/GI:Soft, Non tender, Bowel sounds present Extremities/Musculoskeletal:normal inspection, no edema Neurologic/Psych:AAOX3, grossly no focal neurological deficits Skin: normal color, warm Results & Data Results & Data Vital Signs (Past 12 Hours) Vital Signs Temp Pulse Pulse Resp BP Pulse Ox O2 Del Method 11/10/23 12:00 36.6 C 67 16 125/97 99 11/10/23 11:40 67 16 125/97 99 Room Air 11/10/23 11:25 65 16 118/76 96 Room Air 11/10/23 11:10 75 16 122/73 96 Room Air 11/10/23 10:14 36.6 C 73 16 144/79 H 97 Room Air 11/10/23 08:23 36.5 C 67 20 134/87 95 Room Air 11/10/23 07:05 64 11/10/23 04:58 36.6 C 65 20 128/90 96 Room Air Laboratory Results Short CBC 11/09/23 11/10/23 Range/Units 18:25 06:14 WBC 5.49 (4.8-10.8) K/ul Hgb 14.4 15.1 (14.0-18.0) g/dl Hct 41.3 L 43.6 (42.0-52.0) % Plt Count 207 (130-400) K/uL BMP 11/10/23 06:14 Sodium 140 Potassium 3.6 Chloride 107 Carbon Dioxide 27 BUN 8 Creatinine 0.83 Glucose 85 Calcium 8.6
--- NOTE | 2023-11-10 13:43 | Discharge Summary ---
Date of Service November 10, 2023 Admission HPI Per Admitting Provider 58-year-old male with past medical significant for hypertension, GERD , degenerative disc disease comes with several episodes of blood per rectum today. Has some abdominal discomfort. Micturating okay. Denies chest pain or shortness of breath. Currently no nausea. Having lot of headaches. having spasms in the neck, thinks from the anxiety. Vision is okay. No runny nose or sore throat. No cough. Afebrile. Appetite is okay. Hemodynamics are okay. Past medical's. As mentioned above. past surgical history. None family history. father had lung cancer and mother has diabetes. Social history no smoking. Alcohol social drinking. No drug use. Admission Exam Per Admitting Provider General- Not in distress Head- atraumatic Eyes- PERRL. ENT- oropharynx clear Neck- supple, no JVD. Lungs- clear to auscultation no wheezing or crackles. Heart- regular rhythm; no murmur, no gallop. Abdomen- normal bowel sounds, soft, mild diffuse discomfort no distension. Extremities- no pretibial edema, no erythema seen. Neuro- alert, oriented PERRL, no facial palsy; no dysarthria; moves extremities. Principal Diagnosis Bright red blood per rectum Diverticulosis Discharge Data Allergies Allergy/AdvReac Type Severity Reaction Status Date / Time No Known Allergies Allergy Verified 11/10/23 10:12 Consultations 11/08/23 20:33 ED Decision to Admit Stat 11/09/23 08:00 Consult Gastroenterology Routine Procedures Performed Operation Date: 11/10/23 16:30 Actual Procedures p Colonoscopy - Joey Swenson Case, DO Laboratory Results WBC 5.49 K/ul (4.8-10.8) 11/10/23 06:14 RBC 5.14 M/uL (4.70-6.10) 11/10/23 06:14 Hgb 15.1 g/dl (14.0-18.0) 11/10/23 06:14 Hct 43.6 % (42.0-52.0) 11/10/23 06:14 MCV 84.8 fL (80.0-100.0) 11/10/23 06:14 MCH 29.4 pg (25.0-34.0) 11/10/23 06:14 MCHC 34.6 g/dL (32.0-36.0) 11/10/23 06:14 RDW Std Deviation 38.5 fL (36.4-46.3) 11/10/23 06:14 RDW Coeff of Bernice 12.5 % (11.5-14.5) 11/10/23 06:14 Plt Count 207 K/uL (130-400) 11/10/23 06:14 MPV 9.9 fL (9.4-12.4) 11/10/23 06:14 Immature Gran % (Auto) 0.5 % 11/09/23 05:21 Neut % (Auto) 56.5 % 11/09/23 05:21 Lymph % (Auto) 31.8 % 11/09/23 05:21 [place] % (Auto) 8.2 % 11/09/23 05:21 Eos % (Auto) 2.1 % 11/09/23 05:21 Baso % (Auto) 0.9 % 11/09/23 05:21 Neut # (Auto) 3.29 K/uL (1.40-6.50) 11/09/23 05:21 Lymph # (Auto) 1.85 K/uL (1.20-3.40) 11/09/23 05:21 [place] # (Auto) 0.48 K/uL (0.11-0.59) 11/09/23 05:21 Eos # (Auto) 0.12 K/uL (0.00-0.50) 11/09/23 05:21 Baso # (Auto) 0.05 K/uL (0.00-0.20) 11/09/23 05:21 Immature Gran # (Auto) 0.03 K/uL (0.01-0.20) 11/09/23 05:21 PT 10.7 Seconds (9.0-12.0) 11/08/23 16:02 INR 1.0 (0.9-1.1) 11/08/23 16:02 APTT 28 Seconds (21-31) 11/08/23 16:02 PTT Ratio 1.0 11/08/23 16:02 Sodium 140 mmol/L (136-145) 11/10/23 06:14 Potassium 3.6 mmol/L (3.5-5.1) 11/10/23 06:14 Chloride 107 mmol/L (98-107) 11/10/23 06:14 Carbon Dioxide 27 mmol/L (21-32) 11/10/23 06:14 Anion Gap 6 (3-11) 11/10/23 06:14 BUN 8 mg/dl (6-23) 11/10/23 06:14 Creatinine 0.83 mg/dl (0.6-1.4) 11/10/23 06:14 Est Cr Clr Drug Dosing 101.4 ml/min 11/10/23 06:14 Est GFR ( Amer) 113.2 ml/min 11/10/23 06:14 Est GFR (Non-Af Amer) 97.7 ml/min 11/10/23 06:14 BUN/Creatinine Ratio 9.6 (10-20) L 11/10/23 06:14 Glucose 85 mg/dl (70-99(Fasting)) 11/10/23 06:14 Calcium 8.6 mg/dl (8.6-10.3) 11/10/23 06:14 Magnesium 2.0 mg/dl (1.7-2.4) 11/10/23 06:14 Total Bilirubin 0.7 mg/dl (0.2-1.0) 11/08/23 16:02 AST 38 U/L (13-39) 11/08/23 16:02 ALT 41 U/L (7-52) 11/08/23 16:02 Alkaline Phosphatase 81 U/L (34-104) 11/08/23 16:02 Troponin I High Sens 3.9 pg/ml (0-20) 11/08/23 16:02 Total Protein 7.4 gm/dl (6.0-8.3) 11/08/23 16:02 Albumin 4.5 gm/dl (3.4-5.0) 11/08/23 16:02 Globulin 2.9 gm/dl (2.5-4.0) 11/08/23 16:02 Albumin/Globulin Ratio 1.6 (0.9-2) 11/08/23 16:02 Blood Type O Positive 11/08/23 16:02 Antibody Screen NEGATIVE 11/08/23 16:02 Impressions Abdomen/Pelvis CT 11/08/23 19:21 Exam(s): CT ABDOMEN + PELVIS With Contrast IV Amt: 95 ml opti 320 EXAM: CT Abdomen and Pelvis With Intravenous Contrast CLINICAL HISTORY: llq abd pain brbpr. TECHNIQUE: Axial computed tomography images of the abdomen and pelvis with intravenous contrast. CTDI is 25.31 mGy and DLP is 1191.64 mGy-cm. Automated exposure control was utilized for the study. A dose lowering technique was utilized adhering to the principles of ALARA. CONTRAST: Patient received 95 ml opti 320 of IV contrast COMPARISON: No relevant prior studies available. FINDINGS: Lung bases: Unremarkable. No mass. No consolidation. ABDOMEN: Liver: Unremarkable. No mass. Gallbladder and bile ducts: Unremarkable. No calcified stones. No ductal dilation. Pancreas: Unremarkable. No mass. No ductal dilation. Spleen: Unremarkable. No splenomegaly. Adrenals: Unremarkable. No mass. Kidneys and ureters: Unremarkable. No solid mass. No hydronephrosis. Stomach and bowel: The stomach is decompressed with only minimal gas and fluid noted internally. No evidence for bowel obstruction. No significant asymmetric bowel mucosal abnormality identified. Scattered diverticulosis without definite evidence for diverticulitis. PELVIS: Appendix: A normal caliber appendix is noted posterior to the cecum in the right lateral pelvis. Bladder: Unremarkable. No mass. Reproductive: Unremarkable as visualized. ABDOMEN and PELVIS: Intraperitoneal space: Unremarkable. No free air. No significant fluid collection. Bones/joints: Degenerative changes of the thoracolumbar spine. Chronic anterior wedging at T10 and T11 levels, resulting in accentuated kyphosis. No dislocation. Soft tissues: Unremarkable. Vasculature: Unremarkable. No abdominal aortic aneurysm. Lymph nodes: Unremarkable. No enlarged lymph nodes. IMPRESSION: No evidence for bowel obstruction. No significant asymmetric bowel mucosal abnormality identified. Scattered diverticulosis without definite evidence for diverticulitis. No free intraperitoneal fluid or pneumoperitoneum. Electronically signed by: Tyler Juares MD 11/08/23 20:15 PM Ordered Studies 11/08/23 19:21 CT Abd and Pelvis [CT abd pelvis IV con only] Stat Hospital Course (1) BRBPR (bright red blood per rectum): 58-year-old male with past medical significant for hypertension, GERD , degenerative disc disease comes with several episodes of blood per rectum today. Has some abdominal discomfort. Micturating okay. Denies chest pain or shortness of breath. Currently no nausea. Having lot of headaches. having spasms in the neck, thinks from the anxiety. Vision is okay. No runny nose or sore throat. No cough. Afebrile. Appetite is okay. Hemodynamics are okay. Bright red blood per rectum Likely diverticular bleed Admits to use naproxen for back pain recently --CT ABD:No evidence for bowel obstruction. No significant asymmetric bowel mucosal abnormality identified. Scattered diverticulosis without definite evidence for diverticulitis. No free intraperitoneal fluid or pneumoperitoneum. --S/P Colonoscopy: Diverticulosis in the sigmoid colon. Non-bleeding internal hemorrhoids. No specimens collected. Monitor H&H and transfuse as needed Avoid NSAIDs Appreciate GI input Advance diet as tolerated Discontinue IV Protonix, IV fluids Hb stable Hypertension Resume lisinopril on discharge monitor DVT prophylaxis SCDs Code Status Full code Disposition Home Total Time Total Time Spent Total Time Spent (In Minutes): 58 minutes Discharge Plan Discharge Items Patient Disposition: Home - Self-Care Reason For Visit: GI BLEED Discharge Diagnosis: Bright red blood per rectum Diverticulosis Activity: Per Instructions section Exercise/Sports: Gradually increase as tolerated Non-emergency contact: Primary Care Provider Call non-emergency contact if: you have any medication questions, your symptoms worsen, your pain is concerning for you and you have a fever Follow-up/Referrals: Chinmay Jang MD [Primary Care Provider] - Diet: Heart Healthy Addtl Attending Provider Instructions: Follow-up with your primary care physician Dr. Jang in 1 week Do not take group of medications belonging to NSAIDs group -can increase your risk for bleeding. List Of these medications includes but not limited to: Aspirin Diclofenac Ibuprofen, Motrin, Advil Toradol,ketorolac Naproxen, Aleve, Naprosyn You can take Tylenol as needed for pain or fever When buying [id number] pain medications please consult with pharmacy if you are not sure regarding ingredients, as a lot of the pain medications have combination of NSAIDs and Tylenol. Seek immediate medical attention if your symptoms reoccur or worsen Please take all medications as instructed on discharge list below. Please call if you have any questions or problems. You can reach a [facility] hospitalist on duty at [facility] 24 hours a day by calling [phone] Pending Studies at Discharge: No Stand-Alone Forms: My [facility] [employer], Smoking Cessation Medications and DC Order Prescriptions: Continued multivitamin [Multi-Vitamin] Tablet 1 tab PO QAM lisinopril 10 mg tablet 10 mg PO QAM Fish Oil 2 cap PO QAM Rx Instructions: unknown dose Discontinued Nexium 1 cap PO QAM Rx Instructions: unknown dose Discharge Orders: Discharge Order (Routine); Ordered 11/10/23 Ordered By: Isacc Alvarenga Admission Data Admit Date/Time: 11/08/23 21:34 Attending Provider: Isacc Alvarenga Admit Provider: Abrahan Grullon Primary Care Provider: Chinmay Jang Other Providers: Abrahan Grullon; Luis Coelho; Joey Deluna; Fabiana Ann; Reyna Morse; Katya Holland; Sharlene Bragg; Hawa Castillo; Juanito Trujillo; Abraham Domínguez; Lorne Milner; Richelle Mina; Bola Simpson; Naomi Bullock; Magdalena Schultz; Carmen Chadwick; Keyanna Cameron; Kay Muniz; Henry Muse; Santos Hall; Risa Ritter; Fareed Gauthier Jr
== END 2023-11-10 14:49 | disposition home or self-care (01) | DRG 379 ==
LOC: ED 15:33 → EDINP 21:34 → SUATTDRO 21:34 → INTOOBSV 21:34 → EDINP 22:07 → 2N 11-09 18:09